=== PATIENT | female | born 1960 | race Two or more races ===

== ENCOUNTER 2023-03-31 10:11 | Outpatient (CLI) | payer OTHER | END 2023-03-31 10:28 | disposition home or self-care (01) | LOC: MAMO-SONO 10:11 | PROVIDERS: ATTEND Specialist | DX: N60.11 Diffuse cystic mastopathy of right breast (principal); N60.12 Diffuse cystic mastopathy of left breast; Z12.31 Encounter for screening mammogram for malignant neoplasm of breast ==

== ENCOUNTER 2023-03-31 13:05 | Outpatient (CLI) | payer OTHER | END 2023-03-31 13:08 | disposition home or self-care (01) | LOC: NUCLEAR 13:05 | PROVIDERS: ATTEND Specialist | DX: M81.0 Age-related osteoporosis without current pathological fracture (principal) ==

== ENCOUNTER 2024-05-02 12:56 | Outpatient (CLI) | payer OTHER | END 2024-05-02 13:15 | disposition home or self-care (01) | LOC: MAMO-SONO 12:56 | PROVIDERS: ATTEND Specialist | DX: N60.11 Diffuse cystic mastopathy of right breast (principal); N60.12 Diffuse cystic mastopathy of left breast; M54.16 Radiculopathy, lumbar region; M75.100 Unspecified rotator cuff tear or rupture of unspecified shoulder, not specified as traumatic; M75.101 Unspecified rotator cuff tear or rupture of right shoulder, not specified as traumatic | CPT/HCPCS: 72148 ==

== ENCOUNTER 2025-03-15 06:08 | Outpatient (CLI) | payer OTHER ==
[2025-03-15 07:25] LABS: BASO % 1.3 % (0.1-1.2); EOS # 0.26 (0.04-0.54); EOS % 4.2 % (0.7-7.0); LYMPH # 2.38 (1.18-3.74); LYMPH % 38.5 % (19.3-53.1); MEAN PLATELET VOLUME 8.60 fl (9.4-12.4); MONO # 0.67 (0.24-0.82); MONO % 10.8 % (4.7-12.5); NEUT # 2.78 (1.56-6.13); NEUT % 45.0 % (34.0-71.1); RED CELL DISTRIBUTION WIDTH 13.0 % (11.6-14.4)
[2025-03-15 07:43] LABS: URINE APPEARANCE Clear; URINE BILIRRUBIN Negative (NEGATIVE); URINE BLOOD Negative; URINE COLOR Yellow; URINE GLUCOSE Negative (NEGATIVE); URINE KETONE Negative (NEGATIVE); URINE LEUKOCYTE Negative; URINE NITRATE Negative; URINE PROTEIN Negative (NEGATIVE); URINE UROBILINOGEN 0.2 E.U./dl
[2025-03-15 07:48] LABS: URINE BACTERIA 4.8 uL (0.0-1933); URINE EPITHELIAL CELLS 4.1 uL (0.0-38.8); URINE RBC 5.8 uL (0.0-20.8)
[2025-03-15 08:02] LABS: URINE CAST 0.00 uL (0.0-1.40); URINE WBC 0.7 uL (0.0-23.2)
[2025-03-15 09:01] LABS: ALT/SGPT 27.0 U/L (12-78); AST/SGOT 11.0 U/L (15-37); BILIRUBIN TOTAL 0.45 mg/dL (0.3-1.2); BUN CREA RATIO 13.0 (7.0-25.0); CHOL HDL RATIO 2.9 (0-5.0); CREATININE SERUM 0.7 mg/dL (0.55-1.02); FREE TRIODOTIRONINE 2.24 pg/ml (2.18-3.98); GFR 84.51; GLOBULINA 2.8 G/DL (2.4-3.5); GLUCOSE FASTING 83.0 mg/dL (65-100); HDL 67.0 mg/dl (40-60); LDL 102.0 mg/dl (0-130); OSMOLALITY SERUM 274.0 MOSM/KG (275-295); T4 TOTAL 7.53 UG/DL (4.8-13.9); TSH 3.02 uIU/mL (0.358-3.74); VLDL 25.0 (0-39)
[2025-03-15 12:22] LABS: ob NEGATIVE (NEGATIVE)
[2025-03-16 09:08] LABS: CA 125 8.2 U/mL (0.0-38.1); DHEA-SULFATE 77.6 ug/dL (29.4-220.5)
[2025-03-19 19:12] LABS: T T 72.0 ng/dL (3-67); test free 1.4 pg/mL (0.0-4.2)
== END 2025-03-15 06:20 | disposition home or self-care (01) ==
LOC: LAB 06:08
PROVIDERS: ATTEND Specialist
DX: Z12.11 Encounter for screening for malignant neoplasm of colon (principal); D64.9 Anemia, unspecified; E03.8 Other specified hypothyroidism; N95.1 Menopausal and female climacteric states; I10 Essential (primary) hypertension; C51.9 Malignant neoplasm of vulva, unspecified; E83.51 Hypocalcemia; A64 Unspecified sexually transmitted disease; N39.0 Urinary tract infection, site not specified; R97.8 Other abnormal tumor markers; R79.89 Other specified abnormal findings of blood chemistry; E55.9 Vitamin D deficiency, unspecified; A60.9 Anogenital herpesviral infection, unspecified; R97.1 Elevated cancer antigen 125 [CA 125]; E78.00 Pure hypercholesterolemia, unspecified

== ENCOUNTER 2025-05-22 07:47 | Outpatient (CLI) | payer OTHER | END 2025-05-22 07:51 | disposition home or self-care (01) | LOC: MAMO-SONO 07:47 | PROVIDERS: ATTEND Specialist | DX: N60.11 Diffuse cystic mastopathy of right breast (principal); N60.12 Diffuse cystic mastopathy of left breast ==